=== PATIENT | female | born 1985 | race American Indian/Alaskan Native ===

== ENCOUNTER 2017-03-21 06:14 | Emergency (ER) | payer OTHER ==
[2017-03-21 06:14] VITALS: BMI 27.3
[2017-03-21 06:25] VITALS: RESP 18
[2017-03-21] MEDS ORDERED: Sodium Chloride 0.9% 1,000 ML IV STA (06:30)
[2017-03-21] MEDS ORDERED: Ampicillin/Sulbactam 3 GM in Sodium Chloride 0.9% 100 ML IVPB STA (06:31)
[2017-03-21] MEDS ORDERED: Dextrose 5%/0.9% NS 1,000 ML IV SCH (06:45)
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
[2017-03-21 06:53] LABS: BASO # 0.1 K/uL (0.0-0.2); BASO % 0.7 % (0.0-2.0); EOS # 0.3 K/uL (0.0-0.7); EOS % 2.3 % (0.0-4.0); LYMPH # 2.1 K/uL (1.0-4.3); LYMPH % 18.1 % (20.0-40.0); MEAN CELL VOLUME 78.8 fl (81.0-99.0); MEAN CORPUSCULAR HEMOGLOBIN 26.1 pg (27.0-31.0); MEAN CORPUSCULAR HGB CONC 33.1 g/dL (33.0-37.0); MEAN PLATELET VOLUME 8.6 fl (7.2-11.7); MONO # 0.4 K/uL (0.0-0.8); MONO % 3.7 % (0.0-10.0); NEUT # 8.8 K/uL (1.8-7.0); NEUT % 75.2 % (50.0-75.0); RED CELL DISTRIBUTION WIDTH 15.5 % (11.5-14.5); WHITE BLOOD COUNT 11.7 K/uL (4.8-10.8)
[2017-03-21 07:07] LABS: ALB/GLOB RATIO 1.1 (1.0-2.1); ALKALINE PHOSPHATASE 87 U/L (38-126); ALT/SGPT 33 U/L (9-52); AST/SGOT 32 U/L (14-36); BILIRUBIN,TOTAL 0.5 mg/dl (0.2-1.3); BLOOD UREA NITROGEN 7 mg/dl (7-17); CALCIUM 8.9 mg/dL (8.4-10.2); CARBON DIOXIDE 20 mmol/L (22-30); CHLORIDE 105 mmol/L (98-107); GFR AFRICAN-AMERICAN > 60; GLUCOSE,RANDOM 95 mg/dL (65-105); POTASSIUM 4.1 MMOL/L (3.6-5.0); SODIUM 141 mmol/l (132-148); TOTAL PROTEIN 8.5 G/DL (6.3-8.2)
[2017-03-21 07:15] LABS: PARTIAL THROMBOPLASTIN TIME 26.5 Seconds (25.6-37.1)
--- NOTE | 2017-03-21 07:23 | ED PDOC ---
- Laboratory Results Result Diagrams: 03/21/17 06:32 03/21/17 06:32 - ECG O2 Sat by Pulse Oximetry: 97 (RA) Pulse Ox Interpretation: Normal Medical Decision Making Medical Decision Makin:00 patient signed out to me by Dr. Nuñez. Pending CT, labs, medication, and re- eval. 830am CT imaging no intracranial bleeding, no facial fractures. + subcutaneous air and facial laceration. Wound anesthestized w lidocaine 2% w epi, irrigated w 500ml sterile saline. Wet sterile dressing placed. Pt with significant facial laceration out of scope of ED to repair for optimal result. Potential for nerve, ocular or tear duct involvement, also risk of ectropion development. Discussed case w Dr Smyth on-call [facility] for transfer for consult and plastics repair, and Dr Herbert in ED for acceptance. Patient consents to transfer for specialist evaluation not available at [facility] on emergent basis for significant complicated facial laceration with potential nerve or orbicularis orbital involvement. [id number]- [facility] in ED for transport. Disposition Counseled Patient/Family Regarding: Studies Performed, Diagnosis, Need For Followup - Clinical Impression Clinical Impression: Laceration of face, complicated - POA Present On Arrival: Falls Or Trauma - Disposition Disposition: Other Institution ([facility] ED/ED) Disposition Time: 09:45 Condition: STABLE
--- NOTE | 2017-03-21 09:27 | CT ---
PROCEDURE: CT HEAD WITHOUT CONTRAST. HISTORY: Head injury COMPARISON: Concurrent CT scan maxillofacial skeleton. TECHNIQUE: Axial computed tomography images were obtained through the head/brain without intravenous contrast. Radiation dose: Total exam DLP = 874.68 MGy-cm. This CT exam was performed using one or more of the following dose reduction techniques: Automated exposure control, adjustment of the mA and/or kV according to patient size, and/or use of iterative reconstruction technique. FINDINGS: HEMORRHAGE: No intracranial hemorrhage. BRAIN: No mass effect or edema. No atrophy or chronic microvascular ischemic changes. VENTRICLES: Unremarkable. No hydrocephalus. CALVARIUM: No acute calvarial fractures. Right-sided premaxillary soft tissue swelling with presumed overlying laceration evidenced by however the presence of the sulci subcutaneous air PARANASAL SINUSES: Frontal sinuses are hypoplastic/underpneumatized right greater than left. The remaining visualized paranasal sinuses are well-developed. Mild mucosal thickening ethmoid air complex. MASTOID AIR CELLS: Unremarkable as visualized. No inflammatory changes. OTHER FINDINGS: In situ left-sided eyebrow ring. IMPRESSION: No acute intracranial hemorrhage. Right-sided premaxillary soft tissue swelling and laceration with and subcutaneous air
--- NOTE | 2017-03-21 09:44 | CT ---
PROCEDURE: CT scan maxillofacial skeleton 03/21/2017 HISTORY: Right sided maxillary trauma and tenderness large wound COMPARISON: Correlation made with concurrent CT scan brain TECHNIQUE: Contiguous helical/ transaxial CT images of the maxillofacial bones were obtained. Coronal and sagittal reformats were generated. Radiation dose: Total exam DLP = 780.65 mGy-cm. This CT exam was performed using one or more of the following dose reduction techniques: Automated exposure control, adjustment of the mA and/or kV according to patient size, and/or use of iterative reconstruction technique. . FINDINGS: Current study reveals laceration involving right premaxillary soft tissue with subjacent significant soft tissue swelling and scattered bubbles subcutaneous air. . No definitive radiopaque foreign bodies. The infiltration/induration changes extend to the anterior wall of the right maxillary antrum as well as buccal surface of the right maxilla. . Soft tissue swelling extends superiorly into the infraorbital and inferior periorbital soft tissues as well as medially over the nasal bones and bridge of the nose region. . . No definitive radiopaque foreign bodies are identified. The bony orbits are intact. Globes intact and lenses appropriately located. There are no retrobulbar hemorrhages or collections. Bony orbits and contents unremarkable. . The optic nerves and extraocular musculature unremarkable. There are no acute maxillofacial paranasal sinuses are intact as well with no acute fractures. The frontal sinuses hypoplastic/ underpneumatized on more so on the right side. Remaining visualized paranasal sinuses well-developed. No fluid levels seen to suggest acute sinusitis hemorrhage. Minor mucosal thickening both maxillary antra as well as several ethmoid air cells. There is a small radicular cyst surrounding the root of the right middle incisor tooth the. In addition, small radicular cysts surrounding the roots of the right 1st maxillary bicuspid which also exhibits evidence of dental caries. Dental consultation recommended to assess the integrity of the periodontal ligaments Note again made of in situ of left-sided eyebrow ring Impression: There is a right-sided premaxillary facial laceration with significant right-sided premaxillary soft tissue swelling and subcutaneous air. Soft tissue swelling extends superiorly into the right inferior periorbital regions sosa medially over the bridge of the nose. There also appears to be infiltration/induration extending to the buccal surface of the right maxilla. No radiopaque foreign bodies are identified. Dental caries and radicular cystic changes involving the right 1st maxillary bicuspid with the small radicular cyst surrounding the root of the right middle incisor. Dental consultation recommended to assess the integrity of the periodontal ligaments
[2017-03-21] MEDS ORDERED: TDAP Vaccine 0.5 mL Syr IM ONE (10:38)
[2017-03-21 11:35] VITALS: BP 116/76; PULSE 97; TEMP 98.3
[2017-03-21 11:46] VITALS: O2SAT 97
== END 2017-03-21 11:48 | disposition short-term general hospital (02) ==
LOC: H.ER 06:14
DX: S09.90XA Unspecified injury of head, initial encounter (principal); S01.81XA Laceration without foreign body of other part of head, initial encounter; W22.8XXA Striking against or struck by other objects, initial encounter; Y92.89 Other specified places as the place of occurrence of the external cause